=== PATIENT | female | born 1955 | race Caucasian/White ===

== ENCOUNTER 2018-07-20 09:43 | Day surgery (SDC) | payer OTHER, SELFPAY ==
[2018-07-20] VITALS (12 sets, daily range): BP systolic 105–143; BP diastolic 66–85; PULSE 68–86; RESP 9–21; TEMP 36.1–36.6; O2SAT 94–100; BMI 24.1
[2018-07-20] MEDS: LACTATED RINGERS 1,000 ML 42 ML IV ×2 (11:27→13:44)
[2018-07-20] MEDS: CEFAZOLIN 2 GM/100 ML FROZ.PIGGY IV (12:15)
[2018-07-20] MEDS: BUPIVACAINE 0.5% W/ EPI (PF) VIAL 30 ML INJ (12:37)
--- NOTE | 2018-07-20 12:43 | SUR.OPER ---
Supine on padded OR bed, head on pillow, arms secured on padded arm boards at <90 degrees abduction, legs uncrossed, safety belt at thigh, tape over blanket over lower legs. Right arm in control of surgeon on padded arm board
--- NOTE | 2018-07-20 13:52 | PM.OP.1 ---
Operative Date/Time/Diagnoses Date of procedure: 07/20/18 Time of procedure: 12:00 Pre-op diagnosis: Displaced intra-articular fracture of the right distal radius Post-op diagnosis: same Procedure & Clinicians Procedure: Open reduction internal fixation of a right intra-articular displaced fracture Same procedure as scheduled: Yes Indications: Displaced intra-articular distal radius fracture with dorsal subluxation of the carpus Surgeon: Michael Bay Pickle Maker: Danii Dave Anesthesia Type: General Operative Notes Findings: Displaced intra-articular fracture involving the distal radius with dorsal displacement of the carpus due to a dorsal intra-articular fragment Closure Type: primary Specimen(s): none sent Implants & Drains: Tri Med volar plate as well as dorsal pin plate Applied: implant(s) Estimated Blood Loss (mL): 10 Blood products transfused: none Tourniquet time (min): 60 Procedure in detail: On date of service, patient was met in the holding area. Operative site was signed and witnessed by the OR staff. The surgery once again discussed with patient and any remaining questions they had were answered fully. Patient was taken back to the operating theater and placed on the operating table in the supine position. Great care taken to ensure that all bony prominences were properly padded. A well-padded tourniquet was placed up along the upper extremity. A timeout was performed to verify patient's name, procedure, and operative site. The upper extremity was then prepped and draped in the normal sterile fashion. An Esmarch was used to exsanguinate the limb and the tourniquet was turned up to 250 mm mercury. A FCR. approach was performed to expose the distal radius.A 15 blade was used to incise the skin and fascial tissue. Pickups and tenotomy scissors used to dissect down until the FCR tendon was visualized. The FCR tendon was freed up from its sheath and retracted ulnarly. Floor of the FCR tendon was opened allowing us to retract the flexor tendons and median nerve ulnarly. Partial release of the brachioradialis was also performed. The pronator quadratus was then lifted off the distal radius in a periosteal fashion. This gives good visualization of the distal radius as well as the fracture. A reduction maneuver was performed and a plate was held provisionally with a K wire. C-arm was brought in and AP and lateral views were obtained to verify plate position as well as reduction. Both were satisfied with the position of the plate the distal locking screws were placed. X-rays were obtained again verifying screw positioning. Next, a plate was used to complete the reduction of the distal radius. We're able to correct the radial inclination, height, and tilt. Once we were satisfied with the overall reduction of the distal radius, the proximal screws were placed securing the plate to the radius shaft. The wound was then copiously irrigated. X-rays were obtained. Next, we turned our attention to the displaced dorsal fragment causing subluxation of the carpus dorsally. A dorsal incision was made just ulnar to Hannah's tubercle. Fifteen blade was used to incise through skin and fascial tissue. Sharp dissection was performed giving us good visualization of the extensor mechanism. The 3rd and 4th extensor compartments were opened. Third compartment taken radially, 4th compartment taken ulnarly. This gave us good visualization of the dorsal aspect of the distal radius. There was an intra-articular dorsal fragment that was displaced dorsally taking the carpus and causing it to sublux dorsally. This was reduced and held provisionally with a K-wire. This was verified with C-arm views. Once we are satisfied with the K-wire position and the reduction of that dorsal fragment, a pin plate was placed. This was secured proximally with fully-threaded cortical screws. Then the K-wire was cut and bent and impacted into the plate fixating the plate distally. Final x-rays were obtained. There was good return of radial height, inclination, and tilt. The dorsal subluxation of the carpus was corrected in the articular surface was realigned without any significant articular step-offs. The Wound was closed in layered fashion. Marcaine was injected around the incision sites as well as the median and ulnar nerve for postoperative pain control. The hand was then cleaned, dried, and dressed. Splint was placed and patient was taken to the PACU in stable condition. POST OP INSTRUCTIONS Patient will follow our postoperative protocol for open reduction internal fixation of the distal radius fracture. There are no restrictions to range of motion of the wrist or digit. Patient can begin range of motion exercises in the next 24-48 hours. We will limit the amount of lifting patient is 2-3 pounds for the next 6 weeks. Patient will see the hand therapist in the next one to 2 days to be made a removable wrist brace. Complications: none Condition: stable Disposition: PACU Plan for aftercare: No restrictions to range of motion. Patient will be converted into a removable wrist brace in the next few days. No lifting more than 2-3 lb for the next 6 weeks.
--- NOTE | 2018-07-20 13:58 | P.OP_ITS ---
Operative Date/Time/Diagnoses Date of procedure: 07/20/18 Time of procedure: 12:00 Pre-op diagnosis: Displaced intra-articular fracture of the right distal radius Post-op diagnosis: same Procedure & Clinicians Procedure: Open reduction internal fixation of a right intra-articular displaced fracture Same procedure as scheduled: Yes Indications: Displaced intra-articular distal radius fracture with dorsal subluxation of the carpus Surgeon: Michael Bay Unit Manager: Danii Dave Anesthesia Type: General Operative Notes Findings: Displaced intra-articular fracture involving the distal radius with dorsal displacement of the carpus due to a dorsal intra-articular fragment Closure Type: primary Specimen(s): none sent Implants & Drains: Tri Med volar plate as well as dorsal pin plate Applied: implant(s) Estimated Blood Loss (mL): 10 Blood products transfused: none Tourniquet time (min): 60 Procedure in detail: On date of service, patient was met in the holding area. Operative site was signed and witnessed by the OR staff. The surgery once again discussed with patient and any remaining questions they had were answered fully. Patient was taken back to the operating theater and placed on the operating table in the supine position. Great care taken to ensure that all bony prominences were properly padded. A well-padded tourniquet was placed up along the upper extremity. A timeout was performed to verify patient's name, procedure, and operative site. The upper extremity was then prepped and draped in the normal sterile fashion. An Esmarch was used to exsanguinate the limb and the tourniquet was turned up to 250 mm mercury. A FCR. approach was performed to expose the distal radius.A 15 blade was used to incise the skin and fascial tissue. Pickups and tenotomy scissors used to dissect down until the FCR tendon was visualized. The FCR tendon was freed up from its sheath and retracted ulnarly. Floor of the FCR tendon was opened allowing us to retract the flexor tendons and median nerve ulnarly. Partial release of the brachioradialis was also performed. The pronator quadratus was then lifted off the distal radius in a periosteal fashion. This gives good visualization of the distal radius as well as the fracture. A reduction maneuver was performed and a plate was held provisionally with a K wire. C-arm was brought in and AP and lateral views were obtained to verify plate position as well as reduction. Both were satisfied with the position of the plate the distal locking screws were placed. X-rays were obtained again verifying screw positioning. Next, a plate was used to complete the reduction of the distal radius. We're able to correct the radial inclination , height, and tilt. Once we were satisfied with the overall reduction of the distal radius, the proximal screws were placed securing the plate to the radius shaft. The wound was then copiously irrigated. X-rays were obtained. Next, we turned our attention to the displaced dorsal fragment causing subluxation of the carpus dorsally. A dorsal incision was made just ulnar to Hannah's tubercle. Fifteen blade was used to incise through skin and fascial tissue. Sharp dissection was performed giving us good visualization of the extensor mechanism. The 3rd and 4th extensor compartments were opened. Third compartment taken radially, 4th compartment taken ulnarly. This gave us good visualization of the dorsal aspect of the distal radius. There was an intra- articular dorsal fragment that was displaced dorsally taking the carpus and causing it to sublux dorsally. This was reduced and held provisionally with a K- wire. This was verified with C-arm views. Once we are satisfied with the K- wire position and the reduction of that dorsal fragment, a pin plate was placed. This was secured proximally with fully-threaded cortical screws. Then the K-wire was cut and bent and impacted into the plate fixating the plate distally. Final x-rays were obtained. There was good return of radial height, inclination, and tilt. The dorsal subluxation of the carpus was corrected in the articular surface was realigned without any significant articular step-offs. The Wound was closed in layered fashion. Marcaine was injected around the incision sites as well as the median and ulnar nerve for postoperative pain control. The hand was then cleaned, dried, and dressed. Splint was placed and patient was taken to the PACU in stable condition. POST OP INSTRUCTIONS Patient will follow our postoperative protocol for open reduction internal fixation of the distal radius fracture. There are no restrictions to range of motion of the wrist or digit. Patient can begin range of motion exercises in the next 24-48 hours. We will limit the amount of lifting patient is 2-3 pounds for the next 6 weeks. Patient will see the hand therapist in the next one to 2 days to be made a removable wrist brace. Complications: none Condition: stable Disposition: PACU Plan for aftercare: No restrictions to range of motion. Patient will be converted into a removable wrist brace in the next few days. No lifting more than 2-3 lb for the next 6 weeks.
--- NOTE | 2018-07-20 14:46 | SUR.PHASEII ---
brought to [facility], filling prescriptions. initially wanted pain med, then decided she did not.
[2018-07-20] MEDS: OXYCODONE/ACETAMINOPHEN 5/325 TABLET 1 TAB PO (14:48)
[2018-07-20] MEDS: ONDANSETRON 4 MG/2 ML INJ IV (15:00)
--- NOTE | 2018-07-20 15:02 | SUR.PHASEII ---
brought in, pt stated she that she did not want to get sick. medicated with ondansetron and reglan for dry heaves.
[2018-07-20] MEDS: METOCLOPRAMIDE 10 MG/2 ML INJ IV (15:06)
--- NOTE | 2018-07-20 15:07 | SUR.PHASEII ---
report to myrna farias
== END 2018-07-20 14:24 | disposition home or self-care (01) ==
PROVIDERS: Visit Provider Orthopaedic Surgery
PROC: (CPT 25608; principal; 2018-07-20 11:45)
DX: S52.571A Other intraarticular fracture of lower end of right radius, initial encounter for closed fracture (principal); W19.XXXA Unspecified fall, initial encounter; E03.9 Hypothyroidism, unspecified; M81.0 Age-related osteoporosis without current pathological fracture; K58.9 Irritable bowel syndrome, unspecified; Z79.899 Other long term (current) drug therapy
CPT/HCPCS: 25608; J0690; J1100; J2405; J2704; J2765; J3010